=== PATIENT | female | born 1995 | race Caucasian/White ===

== ENCOUNTER 2016-11-22 12:27 | Emergency (ER) | payer SELFPAY ==
[2016-11-22 12:28] VITALS: BMI 21.9
[2016-11-22 12:34] VITALS: BP 125/79; PULSE 105; RESP 18; TEMP 98.5; O2SAT 99
== END 2016-11-22 12:30 | disposition left against medical advice (07) ==
LOC: C.ER 12:27
DX: F11.10 Opioid abuse, uncomplicated (principal); Z02.9 Encounter for administrative examinations, unspecified

== ENCOUNTER 2018-01-30 17:45 | Inpatient (IN) | payer MEDICAID ==
[2018-01-30 17:45] VITALS: BMI 21.9
--- NOTE | 2018-01-30 19:27 | C.PDOC ---
History Of Present Illness 22 year old female presents to the ER for detox of crack and heroin, last uses was today. Patient states she uses daily. Hx of prior OD. No complaints at this time. FOR DETOX CRACK AND HEROIN. LAST USE TODAY. PS USES DAILY. HO PRIOR OD. EXAM NAD NONTOXIC PSYCH ARGUMENTATIVE NO ACUTE INTOX, WITHDRAWAL. NO ACUTE PSYCHOSIS MDM PT REFUSING TO COMPLY W DETOX ADMISSION PROTOCOL. ADVISED WILL NOT BE ACCEPTED TO DETOX IF REFUSES TO COMPLY W DEPT PROTOCOL. AGREES W PLAN, WILL STAY FOR FURTHER EVAL. Time Seen by Provider: 01/30/18 19:26 Chief Complaint (Nursing): Substance Abuse History Per: Patient History/Exam Limitations: no limitations Onset/Duration Of Symptoms: Hrs Current Symptoms Are (Timing): Still Present Suicide/Self Injury Attempted (Context): None Modifying Factor(s): Crack, Other (Heroin) Associated Symptoms: denies: Depression, Suicidal Thoughts Involuntary Hold By: None Recent travel outside of the [place]: No Past Medical History Reviewed: Historical Data, Nursing Documentation, Vital Signs Vital Signs: Last Vital Signs Temp 98.1 F 01/30/18 18:19 Pulse 82 01/30/18 18:19 Resp 18 01/30/18 18:19 BP 129/83 01/30/18 18:19 Pulse Ox 100 01/30/18 18:19 - Medical History PMH: Pneumonia Denies: Anxiety, Bipolar Disorder, Depression, Personality Disorder, Post Traumatic Stress Disorder, Schizophrenia - [facility] INJECT/INFUSE NEC (07/28/13) Family History: States: Unknown Family Hx - Social History Hx Tobacco Use: Yes Hx Alcohol Use: No Hx Substance Use: Yes - Immunization History Hx Tetanus Toxoid Vaccination: No Hx Influenza Vaccination: No Hx Pneumococcal Vaccination: No Review Of Systems Constitutional: Negative for: Fever, Chills Cardiovascular: Negative for: Chest Pain, Palpitations Respiratory: Negative for: Cough, Shortness of Breath Gastrointestinal: Negative for: Nausea, Vomiting Genitourinary: Negative for: Dysuria, Hematuria Skin: Negative for: Rash, Lesions, Bruising Neurological: Negative for: Weakness, Numbness Psych: Negative for: Depression, Suicidal ideation, Other (Homicidal ideation) Physical Exam - Physical Exam Appears: Non-toxic, No Acute Distress, Other (Argumentative, No acute intoxication, withdrawal. No acute psychosis) Skin: Normal Color, Warm, Dry Head: Atraumatic, Normacephalic Eye(s): bilateral: Normal Inspection Oral Mucosa: Moist Neck: Normal, Supple Chest: Symmetrical, No Tenderness Cardiovascular: Rhythm Regular Respiratory: Normal Breath Sounds, No Rales, No Rhonchi, No Wheezing Gastrointestinal/Abdominal: Soft, No Tenderness Back: No CVA Tenderness Extremity: Normal ROM (x4) Neurological/Psych: Oriented x3, Normal Speech Gait: Steady ED Course And Treatment - Laboratory Results Result Diagrams: 01/30/18 20:08 01/30/18 20:08 O2 Sat by Pulse Oximetry: 100 Progress - Re-Evaluation Re-evaluation Note: 01/30/18 19:27 D/W CRISIS, PT IS PRESCREEN 01/30/18 20:43 MED CLEAR FOR DETOX. CRISIS NOTIFIED Medical Decision Making Medical Decision Making: Plan: * Blood work * Urinalysis * Crisis eval PT REFUSING TO COMPLY W DETOX ADMISSION PROTOCOL. ADVISED WILL NOT BE ACCEPTED TO DETOX IF REFUSES TO COMPLY W DEPT PROTOCOL. AGREES W PLAN, WILL STAY FOR FURT HER EVAL. Disposition Counseled Patient/Family Regarding: Studies Performed, Diagnosis - Disposition Disposition: HOSPITALIZED Disposition Time: 21:18 Condition: STABLE Forms: [facility] (Korean) - POA Present On Arrival: None - Clinical Impression Clinical Impression: Opiate abuse, continuous - Scribe Statement The provider has reviewed the documentation as recorded by the Scribsudhakar Galeana All medical record entries made by the Scribe were at my direction and personally dictated by me. I have reviewed the chart and agree that the record accurately reflects my personal performance of the history, physical exam, medical decision making, and the department course for this patient. I have also personally directed, reviewed, and agree with the discharge instructions and disposition.
[2018-01-30 20:11] LABS: BASO # 0.1 K/uL (0.0-0.2); BASO % 1.2 % (0.0-2.0); EOS # 0.1 K/uL (0.0-0.7); HEMOGLOBIN 11.7 g/dL (11.0-16.0); LYMPH # 2.4 K/uL (1.0-4.3); MEAN CELL VOLUME 79.1 fL (81.0-99.0); MEAN CORPUSCULAR HEMOGLOBIN 25.7 pg (27.0-31.0); MEAN CORPUSCULAR HGB CONC 32.5 g/dL (33.0-37.0); MEAN PLATELET VOLUME 8.1 fL (7.2-11.7); MONO # 0.4 K/uL (0.0-0.8); MONO % 7.7 % (0.0-10.0); NEUT # 1.7 K/uL (1.8-7.0); NEUT % 37.1 % (50.0-75.0); NRBC % 0.1 % (0.0-2.0); RBC 4.57 Mil/uL (3.80-5.20); RED CELL DISTRIBUTION WIDTH 13.9 % (11.5-14.5); WHITE BLOOD COUNT 4.7 K/uL (4.8-10.8)
[2018-01-30 20:25] LABS: ALB/GLOB RATIO 1.4 (1.0-2.1); ALBUMIN 4.3 g/dL (3.5-5.0); ALT/SGPT 25 U/L (9-52); AST/SGOT 30 U/L (14-36); BLOOD UREA NITROGEN 18 mg/dL (7-17); CALCIUM 9.5 mg/dl (8.6-10.4); GFR NON-AFRICAN AMERICAN > 60
[2018-01-30 20:26] LABS: SQUAMOUS EPITHIAL 3 /hpf (0-5); URINE BILIRUBIN NEGATIVE (NEGATIVE); URINE BLOOD NEGATIVE (NEGATIVE); URINE CLARITY Clear (Clear); URINE COLOR Yellow (YELLOW); URINE GLUCOSE (UA) NORMAL (Normal); URINE LEUKOCYTE ESTERASE NEG Leu/uL (Negative); URINE PROTEIN NEGATIVE (NEGATIVE); URINE UROBILINOGEN NORMAL mg/dL (0.2-1.0)
[2018-01-30 20:28] LABS: HCG,QUALITATIVE URINE NEGATIVE (NEGATIVE)
[2018-01-30 20:38] LABS: BARBITURATES, UR NEGATIVE (NEGATIVE); BENZODIAZEPINES, UR NEGATIVE (NEGATIVE); OPIATES, UR POSITIVE (NEGATIVE); PHENCYCLIDINE, UR NEGATIVE (NEGATIVE)
--- NOTE | 2018-01-30 21:47 | PCM.BM ---
<Christian King - Last Filed: 01/30/18 21:46> Treatment Plan Problems - Problems identified on initial assessmt potential for opiate withdrawal Date Initiated: 01/30/18 Time Initiated: 21:46 Status: Active Treatment assets and liabiliti Patient Assests: ADL independent, cognitively intact Patient Liabilities: substance abuse - Milieu Protocol Maintain good personal hygiene: daily Encourage regular showers, daily Remind patient to perform daily oral care, daily Assist patient to perform ADL's Conduct patient checks and document Observation sheet: Q15 minutes Maintain personal safety: every shift Educate patient to report safety concerns to staff, every shift Monitor environment for contraband/sharps Medication safety: Monitor for expected outcome, potential side effects: every shift, Assess barriers to learning: every shift, Assess readiness for medication education: every shift <Brenda Forrester - Last Filed: 02/01/18 11:10> Family Contact Family involvement: Family/SO is involved Family contact name: parents Family contacted how many times per week?: 1 - Goals for Treatment Patient goals for treatment: Complete detox and transition to inpatient rehab. Discharge/Continuing Care - Education Needs Education Needs: Family Diagnosis/Disease Process, Family Community resources, Patient Medication, Patient Diagnosis/Disease Process, Patient Coping Skills, Patient Anger Management skills, Patient Placement options, Patient Community resources, Patient Other (overdose precaution) - Discharge Discharge Criteria: No longer exhibiting s/s of withdrawal, Reduction of target symptoms Discharge to:: Substance Abuse Rehab - Treatment Team Participation Patient/Family/SO Statement: 02/01/18 11:09 "I wanna go to [facility]. My sponsor told me about it..." Discussed with Family/SO: No Was Patient/Family/SO present at Treatment Team Meeting: Yes
[2018-01-30] MEDS ORDERED: Aluminum Hydroxide/Magnesium Hydroxide Susp (30 mL) PO PRN (22:21)
--- NOTE | 2018-01-31 13:22 | PCM.PSYCH ---
Initial Psychiatric Evaluation - Initial Psychiatric Evaluation Chief Complaint (in patient's own words): "I want to detox from heroin and crack cocaine" History of Present Illness and Precipitating Events: Patient seen, chart reviewed, case discussed HPI: Patient is a 22-year-old single, unemployed female with no children who lives at home with her Mother, Father and siblings and does not attend school. The patient has been sniffing 10 bags of heroin per day for the past year, with her last use yesterday at 4 pm. The patient has been smoking 1 gram of crack cocaine per day for the past few months, with her last day yesterday at 4 pm. The patient denies any history of alcohol, marijuana or pill use and has smoked a pack per day for 5 years. The patient states that she has overdosed 3 times in the past. The patient has been to detox once which was one week ago and has never been to rehab. The patient denies any family history of alcohol or drug use. Past Psych History: denies Past Medical History: denies Family Psych History: denies Current Medications: Active Medications Generic Name Dose Route Start Last Admin Trade Name Freq PRN Reason Stop Dose Admin Al Hydrox/Mg Hydrox/Simethicone 30 ml 01/30/18 22:21 Maalox 30 Ml PO TID PRN Indigestion / Heartburn Clonidine HCl 0.1 mg 01/30/18 22:21 Catapres PO Q4 PRN COWS Score More or Equal to 5 Hydroxyzine HCl 50 mg 01/30/18 22:39 Atarax PO Q6H PRN Anxiety Ibuprofen 600 mg 01/30/18 22:39 Motrin Tab PO Q6H PRN Pain, moderate (4-7) Loperamide HCl 2 mg 01/30/18 22:21 Imodium PO Q8 PRN Diarrhea Ondansetron HCl 4 mg 01/30/18 22:21 Zofran Tab PO Q8 PRN Nausea/Vomiting Trazodone HCl 100 mg 01/30/18 22:39 Desyrel PO HS PRN Insomnia Past Psychiatric History - Past Psychiatric History Pertinent Medical Hx (Current Medical&Sleep Prob, Allergies): Allergies Allergy/AdvReac Type Severity Reaction Status Date / Time No Known Allergies Allergy Verified 01/30/18 18:24 No Known Home Med 07/28/13 Review of Systems - Psychiatric Psychiatric: absent: Anxiety, Confusion, Depression, Hallucinations, Homicidal Ideation, Suicidal Ideation Mental Status Examination - Personal Presentation Personal Presentation: Looks stated age - Affect Affect: Broad - Motor Activity Motor Activity: Calm - Reliability in Providing Information Reliability in Providing Information: Good - Speech Speech: Organized, Relevant, Coherent - Mood Mood: Neutral - Formal Thought Process Formal Thought Process: No Impairment - Obsessions/Compulsions Obsessions: No Compulsions: No - Cognitive Functions Orientation: Person, Place, Situation, Time Sensorium: Alert Attention/Concentration: Attentive Abstract Thinking: [place] Judgement: Intact, as evidence by: Good judgement Memory: Recent intact, as evidence by: Ability to recall events of the day, Remote intact, as evidenced by: Abilit to recall sig. life events DSM 5 DX - DSM 5 DSM 5 Diagnosis: Opioid withdrawal Cocaine withdrawal Opioid use d/o--severe Cocaine use d/o--severe - Recommended/Plan of Treatment Treatment Recommendations and Plan of Treatment: Taper with Methadone Gabapentin for augmentation if needed As needed medication All risks, benefits and alternatives of the meds discussed and the patient agreed and understood Attend groups and activities Supportive therapy and psychoeducation LA for abstinence CBT for relapse prevention Encourage MAT Refer to rehab or IOP, and self-help groups Teach healthy lifestyle methods, i.e. diet, exercise, meditation Smoking cessation with LA Nicotine patch if needed
[2018-01-31] MEDS ORDERED: Buprenorphine Hydrochloride 2 mg SL ONE ×2 (16:54→18:00)
[2018-02-01] MEDS ORDERED: Buprenorphine Hydrochloride 2 mg SL SCH ×2 (10:02→13:00)
[2018-02-01 10:30] VITALS: BP 111/70; PULSE 91; RESP 18; TEMP 99; O2SAT 99
--- NOTE | 2018-02-01 12:51 | PCM.PYCHDC ---
Mental Status Examination - Mental Status Examination Orientation: Person, Place, Situation, Time Memory: Intact Mood: Anxious Affect: Constricted Speech: Appropriate Attention: WNL Concentration: WNL Association: WNL Fund of Knowledge: WNL Formal Thought Process: No Impairment Suicidal Ideation: No Current Homicidal Ideation?: No Discharge Summary - Discharge Note Consultations:: List each consultation separately and include: 1. Reason for request. 2. Findings. 3. Follow-up Summary of Hospital Course include:: 1. Description of specific treatment plan utilized for patients during their course of treatmen. 2. Summarize the time- course for resolution of acute symptoms and/or regressed behaviors. 3. Describe issues identified and worked on during hospitalization. 4. Describe medication utilized. 5. Describe medical problems identified and treated. 6. Reassessment of suicide risk Summary of Hospital Course: Patient seen, chart reviewed, case discussed HPI: Patient is a 22-year-old single, unemployed female with no children who lives at home with her Mother, Father and siblings and does not attend school. The patient has been sniffing 10 bags of heroin per day for the past year, with her last use yesterday at 4 pm. The patient has been smoking 1 gram of crack cocaine per day for the past few months, with her last day yesterday at 4 pm. The patient denies any history of alcohol, marijuana or pill use and has smoked a pack per day for 5 years. The patient states that she has overdosed 3 times in the past. The patient has been to detox once which was one week ago and has never been to rehab. The patient denies any family history of alcohol or drug use. Past Psych History: denies Past Medical History: denies Family Psych History: denies Hospital course: The pt was admitted and started on treatment with psychotherapy, support, psychoeducation and medications. LA and CBT used. The pt attended groups and activities, as well as milieu therapy. All the risks and benefits of medications are discussed and the patient understood and agreed. The pt improved with the treatments provided. After care discussed with the patient. - Final Diagnosis (DSM 5) Condition upon Discharge: STABLE DSM 5: Opioid withdrawal Cocaine withdrawal Opioid use d/o--severe Cocaine use d/o--severe Disposition: AGAINST MEDICAL ADVICE Follow-up Treatment Plan: Continue below medications after discharge. Follow after care plan as discussed. Use relapse prevention skills Return to ER or call 911 if suicidal, homicidal or symptoms relapse. Stay away from stress, alcohol and drugs. See primary doctor regularly and get labs.
== END 2018-02-01 13:00 | disposition left against medical advice (07) | DRG 770 ==
LOC: C.ER 17:45 → C.7D 21:18
PROVIDERS: ADMIT Psychiatry & Neurology Psychiatry; ATTEND Psychiatry & Neurology Psychiatry
PROC: GZ56ZZZ Individual Psychotherapy, Supportive (ICD-10-PCS; principal; 2018-01-30)
DX: F11.23 Opioid dependence with withdrawal (principal); F17.210 Nicotine dependence, cigarettes, uncomplicated; F14.23 Cocaine dependence with withdrawal